=== PATIENT | female | born 1960 | race Caucasian/White ===

== ENCOUNTER 2023-11-20 16:45 | Emergency (ER) | payer BC ==
[~2023-11-20] VITALS: Ht 157.5 cm; Wt 49.9 kg
[2023-11-20] MEDS ORDERED: DIAZEPAM 5 MG TABLET ONE (17:27)
[2023-11-20] MEDS: DIAZEPAM 5 MG TABLET PO ONE (17:28)
[2023-11-20] MEDS ORDERED: AMOX-430 PO (20:08)
[2023-11-20] MEDS ORDERED: PSEU120T83 PO (20:08)
[2023-11-20] MEDS ORDERED: DIAZ5TAB PO (21:50)
[2023-11-20 22:52] VITALS: BP 128/87; TEMP 98; O2SAT 98
== END 2023-11-20 22:52 | disposition home or self-care (01) ==
LOC: ER 16:46
DX: S52.021A Displaced fracture of olecranon process without intraarticular extension of right ulna, initial encounter for closed fracture (principal); S02.2XXA Fracture of nasal bones, initial encounter for closed fracture; I10 Essential (primary) hypertension; M19.90 Unspecified osteoarthritis, unspecified site; F32.A Depression, unspecified; Z98.890 Other specified postprocedural states; W01.0XXA Fall on same level from slipping, tripping and stumbling without subsequent striking against object, initial encounter; Y93.89 Activity, other specified; Y92.89 Other specified places as the place of occurrence of the external cause; Y99.8 Other external cause status
CPT/HCPCS: 29105; 70450; 70486; 72125; 73030; 73080; 73090; 73200; 99284; A6403